=== PATIENT | male | born 1950 | race Caucasian/White ===

== ENCOUNTER 2016-12-17 10:24 | Day surgery (SDC) | payer BC ==
[2016-12-17] MEDS ORDERED: PROPOFOL 10 MG/ML VIAL IV ONE (10:25)
[2016-12-17] MEDS ORDERED: LIDOCAINE 2% MDV (20MG/ML) 20ML VIAL IV ONE (10:25)
--- NOTE | 2016-12-20 08:20 | Operative Note ---
DATE OF SURGERY: 12/17/2016 SURGEON: Misti Martin MD OPERATION: COLONOSCOPY. INDICATIONS: This is a 66-year-old male with history of average risk for colorectal cancer who presented for screening colonoscopy. POSTOPERATIVE DIAGNOSIS: Normal colon. ANESTHESIA: Sedation is per Anesthesia. Pulse oximetry was monitored throughout the procedure to maintain O2 saturation of 90% or greater. Supplemental oxygen was administered via nasal cannula. Cardiac and vital signs were monitored throughout the duration of the procedure, and they were stable. The procedure of colonoscopy and risks and alternatives of the procedure, including the risk of bleeding and perforation, among others, were explained to the patient who voiced understanding and agreed to have the procedure done. Physical examination was performed, and the patient was found stable for sedation. PROCEDURE: The patient was placed in the left lateral position. Sedation was initiated. A digital rectal exam was performed and showed some mild external hemorrhoids with no palpable rectal masses. An Olympus PCF-180AL colonoscope was then inserted into the rectum under direct visualization. It was advanced to the cecum without difficulty. The ileocecal valve and appendiceal orifice were identified and photographed. The colonic mucosa was carefully examined upon introduction of the colonoscope. There were no lesions noted. The bowel preparation was good. The colonoscope was then withdrawn while carefully examining the colonic mucosal surfaces. No other lesions were noted. In the rectum, retroflexion was performed and grade 1 internal hemorrhoids were noted. The ileocecal valve was intubated and it was normal. The patient tolerated the procedure well without any immediate complications. He remained with stable vital signs and was transferred to the recovery room. RECOMMENDATIONS: 1. The patient should be on a high-fiber diet. 2. The patient is to have a repeat colonoscopy for screening in 10 years. Thank you for allowing me to participate in the care of your patient. CC: Aggie RENDON
== END 2016-12-17 12:30 | disposition home or self-care (01) ==
LOC: HOP 10:24
PROVIDERS: ATTEND Internal Medicine Gastroenterology
DX: Z12.11 Encounter for screening for malignant neoplasm of colon (principal); Z86.010 Personal history of colon polyps; K64.0 First degree hemorrhoids
CPT/HCPCS: 00810; G0105

== ENCOUNTER 2018-04-06 07:24 | Day surgery (SDC) | payer BC ==
[~2018-04-06 07:24] MED LIST: CEFAZOLIN 2 Gram 2 GM/50 ML BAG IVPB ONE; CELECOXIB 100 MG CAPSULE PO ONE; FAMOTIDINE 20MG TABLET PO ONE; MECLIZINE 25 MG TABLET PO ONE; METOCLOPRAMIDE 10 MG TABLET PO ONE
[2018-04-06] MEDS ORDERED: LIDOCAINE 2% MDV (20MG/ML) 20ML VIAL IV ONE (07:25)
[2018-04-06] MEDS ORDERED: MIDAZOLAM HCL 2MG/2ML VIAL IV ONE (07:25)
[2018-04-06] MEDS ORDERED: ROPIVACAINE HCL (NAROPIN) /PF 5MG/ML 20ML VIAL IV ONE (07:25)
[2018-04-06] MEDS ORDERED: FENTANYL PF 100MCG/2ML VIAL IV ONE (07:25)
[2018-04-06] MEDS ORDERED: PROPOFOL 10 MG/ML VIAL IV ONE (07:25)
[2018-04-06] MEDS ORDERED: EPHEDRINE SULFATE 50 MG/ML ML IV ONE (07:25)
[2018-04-06] MEDS ORDERED: DEXAMETHASONE 4 MG/ML 1ML VIAL IVP ONE (07:25)
[2018-04-06] MEDS ORDERED: TRANEXAMIC ACID 1,000 MG/10 ML ML IV ONE (07:25)
[2018-04-06] MEDS ORDERED: HYDROMORPHONE HCL 2 MG/ML VIAL IV PRN (10:45)
[2018-04-06] MEDS ORDERED: NALOXONE 0.4 MG/1 ML VIAL IVP PRN (10:45)
[2018-04-06] MEDS ORDERED: AL HYDROX/MAG HYDROX 30ML UD PO PRN (10:45)
[2018-04-06] MEDS ORDERED: ONDANSETRON HCL IV 4 MG/2 ML VIAL IVP PRN (10:45)
[2018-04-06] MEDS ORDERED: HYDROCODONE/APAP 5/325MG TABLET PO PRN (10:45)
[2018-04-06] MEDS ORDERED: RINGERS SOLUTION,LACTATED 1,000 ML IV SCH (10:45)
[2018-04-06] MEDS ORDERED: SENNOSIDES/DOCUSATE SODIUM UD CAPSULE PO PRN (10:45)
[2018-04-06] MEDS ORDERED: ZOLPIDEM TARTRATE 5 MG TABLET PO PRN (10:45)
[2018-04-06] MEDS ORDERED: DIPHENHYDRAMINE HCL 25 MG CAPSULE PO PRN (10:45)
[2018-04-06] MEDS ORDERED: MAGNESIUM HYDROXIDE 30 ML UDC PO PRN (10:45)
[2018-04-06] MEDS ORDERED: ACETAMINOPHEN 325 MG TAB PO PRN (10:45)
[2018-04-06] MEDS ORDERED: METOCLOPRAMIDE HCL 10 MG/2 ML VIAL IVP PRN (10:45)
[2018-04-06] MEDS ORDERED: TRAMADOL HCL 50 MG TABLET PO PRN ×2 (10:45)
[2018-04-06] MEDS ORDERED: TRANEXAMIC ACID 1,000 MG in 0.9 % SODIUM CHLORIDE 100ML 100 ML IVPB ONE (13:00)
--- NOTE | 2018-04-06 15:31 | Operative Note ---
DATE OF SURGERY: 04/06/2018 Surgeon: Jarvis Cruz DO PREOPERATIVE DIAGNOSIS: Primary osteoarthritis of the left knee. POSTOPERATIVE DIAGNOSIS: Primary osteoarthritis of the left knee. OPERATION: Left total knee arthroplasty. DESCRIPTION OF PROCEDURE: This 67-year-old male was taken to the operating room and placed in the supine position on the operating room table. Spinal anesthesia was induced by the department of anesthesia. The left lower extremity was then elevated. It was prepped with Hibiclens and draped in the usual sterile fashion. It was exsanguinated and the tourniquet inflated to 300 mmHg. All scrub personnel wore personal isolation suits. An anterior longitudinal midline incision was made followed by a medial parapatellar arthrotomy incision. An intracondylar drill hole was made for the intramedullary alignment redd, and a 6-degree valgus 9 mm cut was made in the distal femur. The wafer of bone was removed. Sizing jig was affixed and size 70 was seen to be the appropriate size. The 4-in-1 cutting block was then fixed in 3 degrees of external rotation, and the appropriate cuts were made. The wafers of bone were removed. We then directed our attention to the proximal tibia, and an extramedullary alignment guide was used to cut the proximal tibia referencing a 10 mm cut off the lateral tibial plateau. Once the appropriate alignment of the block had been assured, a 3-degree posterior slope cut was made in the proximal tibia, and the wafer of bone was removed. Remnants of the menisci and osteophytes were removed from the posterior aspect of the joint. The tibia was then sized to a size 75, and the stem punch was used. The wound copiously irrigated with pulse lavage lactated Ringer's solution. Trial components were inserted and a 70 cruciate retaining femur, 75 tibia, 10 mm bearing, and after the patella was cut, a 37 x 8.6 mm patella was used for trial purposes which restored the patella to anatomic height. The knee was taken through range of motion and excellent stability with full motion being noted with the trial components. All the trial components were then removed and the wound again copiously irrigated with lactated Ringer's solution. All bony surfaces were dried. All components were cemented into place and excess cement removed after the insertion of each component. Initially, the tibial baseplate was inserted followed by the insertion of the tibial bearing, femoral component, and finally the patella. Once the cement had hardened, the knee was again taken through range of motion and found to be stable. The wound again copiously irrigated with lactated Ringer's solution. A drain was placed through a separate stab incision, and the arthrotomy incision was closed with a #2 Vicryl. The subcutaneous tissue was closed with 0 Vicryl and the skin was stapled. Sterile dressings applied with a Polar Care. The patient was taken to the recovery room in satisfactory condition. GROSS PATHOLOGY: This patient demonstrated very severe patellofemoral osteoarthritis with full-thickness articular cartilage loss being noted there as well as on the medial femoral condyle and medial tibial plateau with the lateral compartment showing much less degenerative disease, grade 2 changes noted there. Final components inserted were a [employer] Vanguard size 70 cruciate retaining femoral component, a 75 tibial baseplate, a 10 mm anterior stabilized E1 bearing, and a 37 x 8.6 mm patella was used. CC: Aggie RENDON
--- NOTE | 2018-04-06 16:19 | Rehab Evaluation ---
Patient Information - Patient Information Diagnosis: OA L knee, s/p TKA Ordered Treatment: PT Evaluate and Treat Status: Initial Evaluation Surgery: Yes (L TKA) Date of Surgery: 04/06/18 History: Detail (Pt describes progressive degeneration of L knee; had R knee replaced about 2 years ago.) Past Medical/Surgical Hx: PAST MEDICAL/SURGICAL HISTORY Past Surgical History rt knee scope; [facility] RTKA PMH - Respiratory Hx Respiratory Disorders Yes Hx Pneumonia Yes: chemical pneumonia-resp reaction to jet fuel PMH - Cardiovascular Hx Cardiovascular Disorders Yes Hx Edema Yes: slight Hx Irregular Heartbeat Yes: BRADYCARDIA NORMALLY Exercise Tolerance Good Comment: bradycardia with last surgery(hr 30s) PMH - Neuro Hx Neurological Disorders No PMH - GI Hx Gastrointestinal Disorders Yes PMH - Hx Genitourinary Disorders No PMH - Endocrine Hx Endocrine Disorders No Hx Diabetes No Hx Thyroid Disease No PMH - Musculoskeletal Hx Musculoskeletal Disorders Yes Hx Arthritis Yes: knee/shoulders Comment: bilat heel spurs-uses inserts PMH - Psych Hx Psychiatric Problems No PMH - Hematology/Oncology Hx Hematology/Oncology No Disorders Premorbid Status: Detail (Pt states that he was experiencing worsening degeneration of L knee.) Social History: Detail (Pt lives with his in a single story home with two steps to enter with single handrail on R side ascending. He has tub/shower combo, hand-held shower, grab bars, elevated toilet. He has a walker, cane, and shower bench. He did not have his walker here for evaluation.) Precautions: [place], Fall - Time With Patient Total Time Spent With Patient (Min): 40 Treatment Procedures: Detail (PT Evaluation, initial mobility.) Subjective Information - Subjective Information Per Patient (Pt reported no pain at rest. Had some tingling on bottom of feet. Attempted urination in bathroom, but noted perineal numbness and inability to urinate.) Objective Data - Pain Pain Present: No Pain Intensity: 0 Pain Scale Used: Numeric (1 - 10) - Mental Status Patient Orientation: Oriented x3 - Visual Perception Appears within normal limits for therapeutic activities - ROM Not within normal limits (Limited in L knee flexion and extension due to surgery , bulky dressing. WNL in B hips, R knee, and B ankles.) - Strength/Tone Not within normal limits (Grossly 3/5 in L knee flexion and extension, 3+/5 in L hip flexion, abduction, adduction; 4/5 in L ankle. R LE muscle groups are 4+/ 5.) - Coordination Appears within normal limits for therapeutic activities - Bed Mobility Needs Assist (Required CGA for L LE to scoot across bed and off of/onto bed.) - Transfers Needs Assist (CGA for sit/stand transfers from bed.) - Balance Balance Sitting: Good Balance Standing: Good - Sensation Intact - Gait Detail (Ambulated from bedside to bathroom, then out to hallway, to end of hallway and back to bed (about 102 feet), with front wheeled walker and CGA, assist for IV pole.) Therapy Assessment - Therapy Assessment Detail (Pt exhibits impaired mobility consistent with his post-surgical condition; he is a good candidate for inpatient physical therapy.) Patient Education - Patient Education Teaching Topic: Disease Process, Equipment Use, Exercise/Activity Response: Verbalize Understanding Teaching Method: Discussion Teaching Recipient: Patient Barriers To Learning: None Problem List - Problem List Physical Therapy Problem List: Detail (1. Requires contact guard assistance w/ bed mobility. 2. Requires contact guard assistance for transfers. 3. Difficulty walking.) Goals - Goals Physical Therapy Goals: 1. Pt will be independent w/bed mobility. 2. Pt will be independent with sit/stand transfers. 3. Pt will safely ambulate over household distances with front-wheeled walker with supervision. 4. Pt will safely ascend/descend 3 steps with appropriate assistive device w/standby/ contact guard assistance. Prognosis - Prognosis Good Plan - Plan Physical Therapy Plan: Pt will be seen 1-2 times tomorrow for mobility, transfer , and gait training to facilitate safe return to home. Anticipate discharge tomorrow afternoon.
[2018-04-06] MEDS: CEFAZOLIN 2 Gram 2 GM/50 ML BAG IVPB SCH (16:45)
[2018-04-06] MEDS: HYDROCODONE/APAP 5/325MG TABLET PO PRN ×3 (16:45→23:48)
[2018-04-06] MEDS: ASPIRIN 325 MG TAB ENTERIC-COATED PO SCH (21:27)
[2018-04-07] MEDS: CEFAZOLIN 2 Gram 2 GM/50 ML BAG IVPB SCH ×2 (01:16→10:35)
[2018-04-07] MEDS: HYDROCODONE/APAP 5/325MG TABLET PO PRN ×4 (04:44→15:07)
[2018-04-07 06:49] LABS: HEMATOCRIT 39.6 % (42.0-52.0); HEMOGLOBIN 13.4 gm/dl (14.0-18.0); MEAN CELL VOLUME 92.7 fl (81-97); MEAN CORPUSCULAR HGB CONC 33.8 g/dl (32-36); MEAN PLATELET VOLUME 9.2 fl (7.4-10.4); PLATELET COUNT 318 K/uL (130-400); RED BLOOD COUNT 4.27 M/uL (4.40-5.70); RED CELL DISTRIBUTION WIDTH 14.1 % (11.5-14.5); WHITE BLOOD COUNT W/O DIFF 12.2 K/uL (4.2-12.2)
[2018-04-07 06:57] LABS: MEAN CORPUSCULAR HEMOGLOBIN 31.3 pg (27-33)
[2018-04-07] MEDS: ASPIRIN 325 MG TAB ENTERIC-COATED PO SCH (10:35)
--- NOTE | 2018-04-07 11:50 | Physical Therapy Tx Note ---
Physical Therapy Tx Note - Treatment Note Tolerated: Good Total Time Spent With Patient: 25 Physical Therapy Tx Note: Detail (The patient was up in chair when PT arrived. The patient was independent with sit to and from stand transfer. The patient ambulated 100 feet x 1 independently with front wheeled WBAT on the L LE. The patient ambulated on stairs using walker and one railing using proper technique with supervison for safety only. The patient completed TKA Exercises including: Heel slides, quad sets, hamstring sets, ankle pumps,gluteal sets and SLR with and without use of strap. The patient had difficulty with quad isolation. The patient has met all inpatient goals and is discharged from inpatient PT. The patient is to continue with Outpatient PT.) Physical Therapy Problem List: Detail (1. Requires contact guard assistance w/ bed mobility. 2. Requires contact guard assistance for transfers. 3. Difficulty walking.) Physical Therapy Goals: 1. Pt will be independent w/bed mobility. (Goal Met). 2. Pt will be independent with sit/stand transfers. (Goal Met). 3. Pt will safely ambulate over household distances with front-wheeled walker with supervision.(Goal Met). 4. Pt will safely ascend/descend 3 steps with appropriate assistive device w/standby/contact guard assistance. (Goal Met) Physical Therapy Plan: The patient has met all inpatient PT goals and is discharged from inpatient PT.
--- NOTE | 2018-04-07 13:56 | Rehab Evaluation ---
Patient Information - Patient Information Diagnosis: OA L knee, s/p TKA Ordered Treatment: OT Evaluate and Treat Status: Initial Evaluation Surgery: Yes (L TKA) Date of Surgery: 04/06/18 History: Detail (Pt describes progressive degeneration of L knee; had R knee replaced about 2 years ago.) Past Medical/Surgical Hx: PAST MEDICAL/SURGICAL HISTORY Past Surgical History rt knee scope; [facility] RTKA PMH - Respiratory Hx Respiratory Disorders Yes Hx Pneumonia Yes: chemical pneumonia-resp reaction to jet fuel PMH - Cardiovascular Hx Cardiovascular Disorders Yes Hx Edema Yes: slight Hx Irregular Heartbeat Yes: BRADYCARDIA NORMALLY Exercise Tolerance Good Comment: bradycardia with last surgery(hr 30s) PMH - Neuro Hx Neurological Disorders No PMH - GI Hx Gastrointestinal Disorders Yes PMH - Hx Genitourinary Disorders No PMH - Endocrine Hx Endocrine Disorders No Hx Diabetes No Hx Thyroid Disease No PMH - Musculoskeletal Hx Musculoskeletal Disorders Yes Hx Arthritis Yes: knee/shoulders Comment: bilat heel spurs-uses inserts PMH - Psych Hx Psychiatric Problems No PMH - Hematology/Oncology Hx Hematology/Oncology No Disorders Premorbid Status: Detail (Pt states that he was experiencing worsening degeneration of L knee.) Social History: Detail (Pt lives with his in a single story home with two steps to enter with single handrail on R side ascending. He has tub/shower combo, hand-held shower, shower seat, grab bars and an elevated toilet with a grab bar. He has a walker, cane, and shower bench. He and his share home mgmt, meal prep tasks and his is primarily responsible for laundry. 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.) Precautions: [place], Fall - Time With Patient Total Time Spent With Patient (Min): 30 Treatment Procedures: Detail (OT eval low complexity) Subjective Information - Subjective Information Per Patient Objective Data - Pain Pain Present: Yes (03/26) - Mental Status Patient Orientation: Oriented x3 - Visual Perception Appears within normal limits for therapeutic activities - ROM Within normal limits (Zac UE AROM WNL) - Strength/Tone Within normal limits (Zac UE strength WNL) - Coordination Appears within normal limits for therapeutic activities - Transfers Independent (Ind with sit to stand from chair height.) - Balance Balance Sitting: Good Balance Standing: Good - Sensation Intact - ADL's/IADL's Detail (Pt educated and able to demonstrate learning of modified LE dressing techniques including doffing slipper socks and donning socks, pants and tennis shoes. Pt educated re: kitchen and shower safety and modifications, he verbalized understanding.) Therapy Assessment - Therapy Assessment Detail (Pt is Ind with modified LE dressing techniques.) Problem List - Problem List Physical Therapy Problem List: Detail (1. Requires contact guard assistance w/ bed mobility. 2. Requires contact guard assistance for transfers. 3. Difficulty walking.) Occupational Therapy Problem List: Detail (No current IP OT problems identified. ) Goals - Goals Physical Therapy Goals: 1. Pt will be independent w/bed mobility. (Goal Met). 2. Pt will be independent with sit/stand transfers. (Goal Met). 3. Pt will safely ambulate over household distances with front-wheeled walker with supervision.(Goal Met). 4. Pt will safely ascend/descend 3 steps with appropriate assistive device w/standby/contact guard assistance. (Goal Met) Occupational Therapy Goals: No current IP OT goals identified. Prognosis - Prognosis Good Plan - Plan Physical Therapy Plan: The patient has met all inpatient PT goals and is discharged from inpatient PT. Occupational Therapy Plan: No further IP OT recommended. Thank you for this referral.
--- NOTE | 2018-04-10 08:30 | Discharge Summary ---
DATE OF ADMISSION: 04/06/2018 DATE OF DISCHARGE: 04/07/2018 ADMITTING DIAGNOSIS: Osteoarthritis of the left knee. DISCHARGE DIAGNOSIS: Osteoarthritis of the left knee. OPERATIVE PROCEDURE: Left total knee arthroplasty. DESCRIPTION: This 67-year-old male was admitted to the hospital for elective total knee arthroplasty and tolerated the operative procedure well. The drain was removed the first postoperative day. He was given a prescription for [place] 5/325 mg, #40, 1 every 4 hours as necessary for pain. He will take aspirin 325 mg daily for 2 weeks. He will have in-home physical therapy and he was instructed on the use of his ЮЛИЯ hose. Routine wound care instructions were given. He will follow up in the office in 2 weeks. Should he have any problems prior to being seen, he was instructed to call my office. ELENA
== END 2018-04-07 17:09 | disposition home or self-care (01) ==
LOC: SUR 07:24 → MEDSURG 11:05 → SUR 04-07 17:09
PROVIDERS: ATTEND Orthopaedic Surgery
DX: M17.12 Unilateral primary osteoarthritis, left knee (principal)
CPT/HCPCS: 27447; 01402; 64447; 85025; J3010; J0690 ×2; J3490; J2795; 76942; J7120